=== PATIENT | male | born 1985 | race Caucasian/White ===

== ENCOUNTER 2018-02-09 13:26 | Emergency (ER) | payer SELFPAY ==
[~2018-02-09] VITALS: Ht 170.2 cm; Wt 77.0 kg
[2018-02-09] MEDS ORDERED: LORazepam 2 MG TAB PO ONE (14:30)
[2018-02-09 14:51] VITALS: BP 169/79; PULSE 86; RESP 20; TEMP 98.6; O2SAT 95
[2018-02-09 15:40] LABS: AUTOMATED NEUTROPHIL # 6.6 TH/MM3 (1.8-7.7); BASOPHIL # 0.1 TH/MM3 (0-0.2); BASOPHIL % 0.5 % (0.0-2.0); EOSINOPHIL % 0.3 % (0.0-4.0); HEMATOCRIT 39.7 % (39.0-51.0); HEMOGLOBIN 13.5 GM/DL (13.0-17.0); LYMPH % 19.3 % (9.0-44.0); LYMPHOCYTE # 1.8 TH/MM3 (1.0-4.8); MEAN CELL VOLUME 86.6 FL (80.0-100.0); MEAN CORPUSCULAR HEMOGLOBIN 29.4 PG (27.0-34.0); MEAN CORPUSCULAR HGB CONC 33.9 % (32.0-36.0); MEAN PLATELET VOLUME 8.2 FL (7.0-11.0); MONO % 9.9 % (0.0-8.0); MONOCYTE # 0.9 TH/MM3 (0-0.9); PLATELET COUNT 205 TH/MM3 (150-450); RED BLOOD COUNT 4.59 MIL/MM3 (4.50-5.90); RED CELL DISTRIBUTION WIDTH 13.7 % (11.6-17.2); WHITE BLOOD COUNT 9.4 TH/MM3 (4.0-11.0)
[2018-02-09 15:51] LABS: ALBUMIN 4.7 GM/DL (3.4-5.0); ALKALINE PHOSPHATASE 63 U/L (45-117); ALT (GPT) 53 U/L (12-78); AST (GOT) 120 U/L (15-37); BLOOD UREA NITROGEN 15 MG/DL (7-18); CALCIUM 9.5 MG/DL (8.5-10.1); CHLORIDE 105 MEQ/L (98-107); CREATININE 0.87 MG/DL (0.60-1.30); GLOMERULAR FILTRATION RATE 102 ML/MIN (>89); GLUCOSE,RANDOM 104 MG/DL (74-106); SODIUM (NA) 139 MEQ/L (136-145); TOTAL PROTEIN 8.7 GM/DL (6.4-8.2)
[2018-02-09 15:53] LABS: ACETAMINOPHEN LESS THAN 2.0 MCG/ML (10.0-30.0)
--- NOTE | 2018-02-09 17:53 | PD ---
HPI Chief Complaint: Psychiatric Symptoms Time Seen by Provider: 17:38 Travel History International Travel<30 days: No Contact w/Intl Traveler<30days: No Traveled to known affect area: No History of Present Illness HPI 32-year-old male presents to the emergency department under Logan act. According to the patient he got into an argument with his girlfriend after doing drugs. Patient denies suicidal or homicidal ideations. Denies history of suicidal attempt. Denies auditory or visual hallucinations. Reports alcohol use and doing cocaine and maybe some mildly. Is prescribed Adderall for ADHD. Symptoms are aggravated by doing drugs. No known relieving factors. Moderate to severe in severity. Unknown onset. Unknown duration. Patient denies chest pain, shortness breath, abdominal pain, nausea, vomiting, change in urine or stool. No known allergies. Denies significant past medical history. History of ADHD. Primary care provider is Dr. Gambino. Has no other medical complaints. No other modifying factors or associated signs and symptoms. 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 Reported Meds & Prescriptions Reported Meds & Active Scripts Active Review of Systems Except as stated in HPI: all other systems reviewed are Neg Physical Exam Narrative GENERAL: Well-nourished, well-developed male patient, in no acute distress SKIN: Warm and dry. HEAD: Atraumatic. Normocephalic. EYES: Pupils equal and round. ENT: Mucosa pink and moist. NECK: Supple. Trachea midline. CARDIOVASCULAR: Regular rate and rhythm. No murmur appreciated. RESPIRATORY: No accessory muscle use. Clear to auscultation. Breath sounds equal bilaterally. GASTROINTESTINAL: Abdomen soft, non-tender, nondistended. Hepatic and splenic margins not palpable. Bowel sounds are active 4 quadrants. MUSCULOSKELETAL: No obvious deformities. No clubbing. No cyanosis. No edema. BACK: No CVA tenderness. NEUROLOGICAL: Awake and alert. Oriented 3. No obvious cranial nerve deficits. Motor grossly within normal limits. Normal speech. Moves all extremities. 5/5 strength to all extremities. PSYCHIATRIC: No delusional thought processes. No hallucinations. Data Data Last Documented VS Vital Signs Date Time Temp Pulse Resp B/P (MAP) Pulse Ox O2 Delivery O2 Flow Rate FiO2 02/09/18 14:51 98.6 86 20 169/79 (109) 95 Room Air Orders Orders Complete Blood Count With Diff (02/09/18 14:21) Comprehensive Metabolic Panel (02/09/18 14:21) Thyroid Stimulating Hormone (02/09/18 14:21) Psych Screen (02/09/18 14:21) Drug Screen, Random Urine (02/09/18 14:21) Alcohol (Ethanol) (02/09/18 14:21) Salicylates (Aspirin) (02/09/18 14:21) Tylenol (Acetaminophen) (02/09/18 14:21) Lorazepam (Ativan) (02/09/18 14:30) Labs Laboratory Tests Test 02/09/18 14:30 02/09/18 15:25 White Blood Count 9.4 TH/MM3 Red Blood Count 4.59 MIL/MM3 Hemoglobin 13.5 GM/DL Hematocrit 39.7 % Mean Corpuscular Volume 86.6 FL Mean Corpuscular Hemoglobin 29.4 PG Mean Corpuscular Hemoglobin Concent 33.9 % Red Cell Distribution Width 13.7 % Platelet Count 205 TH/MM3 Mean Platelet Volume 8.2 FL Neutrophils (%) (Auto) 70.0 % Lymphocytes (%) (Auto) 19.3 % Monocytes (%) (Auto) 9.9 % Eosinophils (%) (Auto) 0.3 % Basophils (%) (Auto) 0.5 % Neutrophils # (Auto) 6.6 TH/MM3 Lymphocytes # (Auto) 1.8 TH/MM3 Monocytes # (Auto) 0.9 TH/MM3 Eosinophils # (Auto) 0.0 TH/MM3 Basophils # (Auto) 0.1 TH/MM3 CBC Comment DIFF FINAL Differential Comment Blood Urea Nitrogen 15 MG/DL Creatinine 0.87 MG/DL Random Glucose 104 MG/DL Total Protein 8.7 GM/DL Albumin 4.7 GM/DL Calcium Level 9.5 MG/DL Alkaline Phosphatase 63 U/L Aspartate Amino Transf (AST/SGOT) 120 U/L Alanine Aminotransferase (ALT/SGPT) 53 U/L Total Bilirubin 1.0 MG/DL Sodium Level 139 MEQ/L Potassium Level 3.6 MEQ/L Chloride Level 105 MEQ/L Carbon Dioxide Level 25.0 MEQ/L Anion Gap 9 MEQ/L Estimat Glomerular Filtration Rate 102 ML/MIN Thyroid Stimulating Hormone 3rd Gen 0.523 uIU/ML Salicylates Level LESS THAN 1.7 MG/DL Acetaminophen Level LESS THAN 2.0 MCG/ML Ethyl Alcohol Level LESS THAN 3 MG/DL Urine Opiates Screen NEG Urine Barbiturates Screen NEG Urine Amphetamines Screen POS Urine Benzodiazepines Screen NEG Urine Cocaine Screen NEG Urine Cannabinoids Screen POS MDM Medical Decision Making Medical Screen Exam Complete: Yes Emergency Medical Condition: Yes Medical Record Reviewed: Yes Differential Diagnosis Polysubstance abuse, suicidal threat, medical clearance for psychiatric admission Narrative Course Patient presents under a Logan act. Physical examination and vital signs are essentially unremarkable. Patient has no medical complaints to report. Psych screen has been ordered. If the laboratory results are unremarkable, the patient will be medically cleared for psychiatric evaluation and disposition. Diagnosis Primary Impression: Medical clearance for psychiatric admission Condition: Stable Maria Teresa Ahmadi Feb 09, 2018 17:53
[2018-02-09 18:26] VITALS: BP 145/92; PULSE 97; RESP 20; O2SAT 97
--- NOTE | 2018-02-09 20:13 | PD ---
History of Present Illness Chief Complaint: Psychiatric Symptoms Time Seen by Provider: 20:00 Travel History International Travel<30 Days: No Contact w/Intl Traveler<30days: No Known affected area: No Legal Status Legal Status: Logan Act Logan Act Signed By: Love Wyman Logan Act Comment: Oj Rojas [id number], Law Enf. Case #[id number] History of Present Illness: History of Present Illness HPI 32-year-old, male with reported history of ADHD who presents to the emergency department under a logan act initiated by law enforcement. The Logan act alleges that the patient is prescribed Adderall but his family feels that he has not been taking it as prescribed and has been injecting other illegal narcotics. Because of David's drug usage he has been acting irrationally, showing up to his parent's house unannounced and causing disturbances during the span of the 24 hour period. According to the patient he got into an argument with his girlfriend, went out to a bar with friends and admits to having done some cocaine. 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 Patient denies suicidal or homicidal ideations. Denies history of suicidal attempt. Denies auditory or visual hallucinations. Reports alcohol use and doing cocaine. Electronic medical record is reviewed. No previous contact with [facility] psychiatry. Toxicology is only positive for amphetamines. Blood alcohol level is less than 3. Patient was monitored in [facility] and he presented no behavioral concerns. Patient is seen. He is asleep but awakens easily. His speech is clear, logical , goal directed and of normal rate and tone. He is engaging and cooperative. His affect is appropriate and mood congruent. The patient does not appear to be experiencing any hallucinations, no delusions, no paranoia. He is not depressed or anxious. He denies any suicidal or homicidal ideation, intent or plan. The patient has not presented any aggressive behavior or agitation. He admits to having used cocaine once and denies any other drug usage and his toxicology is negative. He also states that he is taking his medication as prescribed. The patient is requesting to be discharged as his girlfriend is and is expecting to deliver anytime soon. Telephone call to his girlfriend, Juliana with his verbal authorization to obtain collateral. She has no concerns for his safety and states that he has been more stressed due her and her upcoming delivery. She will pick him up at the hospital if he is discharged. [facility] Past Medical History ADD: Yes Cancer: No Diabetes: No Diminished Hearing: No Hepatitis: Yes (Hep C) Hiatal Hernia: No Immunizations Current: Yes Thyroid Disease: No Tetanus Vaccination: < 5 Years Influenza Vaccination: No Past Surgical History Pacemaker: No Other Surgery: Yes (Left hand, middle finger) Psychiatric History Psychiatric History Hx Psychiatric Treatment: Has been diagnosed with ADHD. Currently under the care of Dr. Grier at [facility]. No history of inpatient psychiatric treatment. No history of suicide attempts. History of Inpatient Treatment: No Guns or firearms in home: No Social History Single male. Currently lives with his girlfriend and their young child. 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 Reported Meds & Prescriptions Reported Meds & Active Scripts Active Review of Systems Psychiatric: COMPLAINS OF: Anxiety (About being in the hospital) Except as stated in HPI: all other systems reviewed are Neg Mental Status Examination Appearance: Disheveled (Dressed in [facility]) Consciousness: Alert Orientation: x4 Motor Activity: Normal gait Speech: Unremarkable Language: Adequate Fund of Knowledge: Adequate Attention and Concentration: Adequate Memory: Unremarkable Mood: Appropriate Affect: Appropriate Thought Process & Associations: Intact, Logical, Goal directed Thought Content: Appropriate Hallucination Type: None Delusion Type: None Suicidal Ideation: No Suicidal Plan: No Suicidal Intention: No Homicidal Ideation: No Homicidal Plan: No Homicidal Intention: No Insight: Adequate Judgment: Adequate [facility] Medical Decision Making Medical Record Reviewed: Yes Assessment/Plan 32-year-old, male with reported history of ADHD who presents to the emergency department under a logan act initiated by law enforcement. The Logan act alleges that the patient is prescribed Adderall but his family feels that he has not been taking it as prescribed and has been injecting other illegal narcotics. Because of David's drug usage he has been acting irrationally, showing up to his parent's house unannounced and causing disturbances during the span of the 24 hour period. According to the patient he got into an argument with his girlfriend, went out to a bar with friends and admits to having done some cocaine. 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 The patient at this time does not present any evidence of unstable mental illness as defined under the Logan act. The patient has no suicidal or homicidal ideation, intent or plan. The patient is cognitively intact. The patient is future oriented. He does not meet Logan act criteria. Collateral information is obtained and his girlfriend has no concerns for his safety. BA is lifted. Psychiatric clear for discharge from the ED Orders Orders Complete Blood Count With Diff (02/09/18 14:21) Comprehensive Metabolic Panel (02/09/18 14:21) Thyroid Stimulating Hormone (02/09/18 14:21) Psych Screen (02/09/18 14:21) Drug Screen, Random Urine (02/09/18 14:21) Alcohol (Ethanol) (02/09/18 14:21) Salicylates (Aspirin) (02/09/18 14:21) Tylenol (Acetaminophen) (02/09/18 14:21) Lorazepam (Ativan) (02/09/18 14:30) Results Vital Signs Date Time Temp Pulse Resp B/P (MAP) Pulse Ox O2 Delivery O2 Flow Rate FiO2 02/09/18 18:26 97 20 145/92 (109) 97 02/09/18 14:51 98.6 86 20 169/79 (109) 95 Room Air Laboratory Tests Test 02/09/18 14:30 02/09/18 15:25 White Blood Count 9.4 Red Blood Count 4.59 Hemoglobin 13.5 Hematocrit 39.7 Mean Corpuscular Volume 86.6 Mean Corpuscular Hemoglobin 29.4 Mean Corpuscular Hemoglobin Concent 33.9 Red Cell Distribution Width 13.7 Platelet Count 205 Mean Platelet Volume 8.2 Neutrophils (%) (Auto) 70.0 Lymphocytes (%) (Auto) 19.3 Monocytes (%) (Auto) 9.9 Eosinophils (%) (Auto) 0.3 Basophils (%) (Auto) 0.5 Neutrophils # (Auto) 6.6 Lymphocytes # (Auto) 1.8 Monocytes # (Auto) 0.9 Eosinophils # (Auto) 0.0 Basophils # (Auto) 0.1 CBC Comment DIFF FINAL Differential Comment Blood Urea Nitrogen 15 Creatinine 0.87 Random Glucose 104 Total Protein 8.7 Albumin 4.7 Calcium Level 9.5 Alkaline Phosphatase 63 Aspartate Amino Transf (AST/SGOT) 120 Alanine Aminotransferase (ALT/SGPT) 53 Total Bilirubin 1.0 Sodium Level 139 Potassium Level 3.6 Chloride Level 105 Carbon Dioxide Level 25.0 Anion Gap 9 Estimat Glomerular Filtration Rate 102 Thyroid Stimulating Hormone 3rd Gen 0.523 Salicylates Level LESS THAN 1.7 Acetaminophen Level LESS THAN 2.0 Ethyl Alcohol Level LESS THAN 3 Urine Opiates Screen NEG Urine Barbiturates Screen NEG Urine Amphetamines Screen POS Urine Benzodiazepines Screen NEG Urine Cocaine Screen NEG Urine Cannabinoids Screen POS Diagnosis Primary Impression: Medical clearance for psychiatric admission Additional Impression: Substance induced mood disorder Psychiatrically Cleared: Yes Med/ Other Pt Specific Info: No Change to Meds, No Meds Exist/No RX given Disposition: 01 DISCHARGE HOME Condition: Stable Problem Qualifiers La Broussard Feb 09, 2018 20:13
--- NOTE | 2018-02-09 21:00 | PD ---
Physical Exam Time Seen by Provider: 20:59 Narrative Please refer to previous providers documentation for details regarding the patient's current visit. Data Data Last Documented VS Vital Signs Date Time Temp Pulse Resp B/P (MAP) Pulse Ox O2 Delivery O2 Flow Rate FiO2 02/09/18 18:26 97 20 145/92 (109) 97 02/09/18 14:51 98.6 Room Air Orders Orders Complete Blood Count With Diff (02/09/18 14:21) Comprehensive Metabolic Panel (02/09/18 14:21) Thyroid Stimulating Hormone (02/09/18 14:21) Psych Screen (02/09/18 14:21) Drug Screen, Random Urine (02/09/18 14:21) Alcohol (Ethanol) (02/09/18 14:21) Salicylates (Aspirin) (02/09/18 14:21) Tylenol (Acetaminophen) (02/09/18 14:21) Lorazepam (Ativan) (02/09/18 14:30) Ed Discharge Order (02/09/18 20:59) Labs Laboratory Tests Test 02/09/18 14:30 02/09/18 15:25 White Blood Count 9.4 TH/MM3 Red Blood Count 4.59 MIL/MM3 Hemoglobin 13.5 GM/DL Hematocrit 39.7 % Mean Corpuscular Volume 86.6 FL Mean Corpuscular Hemoglobin 29.4 PG Mean Corpuscular Hemoglobin Concent 33.9 % Red Cell Distribution Width 13.7 % Platelet Count 205 TH/MM3 Mean Platelet Volume 8.2 FL Neutrophils (%) (Auto) 70.0 % Lymphocytes (%) (Auto) 19.3 % Monocytes (%) (Auto) 9.9 % Eosinophils (%) (Auto) 0.3 % Basophils (%) (Auto) 0.5 % Neutrophils # (Auto) 6.6 TH/MM3 Lymphocytes # (Auto) 1.8 TH/MM3 Monocytes # (Auto) 0.9 TH/MM3 Eosinophils # (Auto) 0.0 TH/MM3 Basophils # (Auto) 0.1 TH/MM3 CBC Comment DIFF FINAL Differential Comment Blood Urea Nitrogen 15 MG/DL Creatinine 0.87 MG/DL Random Glucose 104 MG/DL Total Protein 8.7 GM/DL Albumin 4.7 GM/DL Calcium Level 9.5 MG/DL Alkaline Phosphatase 63 U/L Aspartate Amino Transf (AST/SGOT) 120 U/L Alanine Aminotransferase (ALT/SGPT) 53 U/L Total Bilirubin 1.0 MG/DL Sodium Level 139 MEQ/L Potassium Level 3.6 MEQ/L Chloride Level 105 MEQ/L Carbon Dioxide Level 25.0 MEQ/L Anion Gap 9 MEQ/L Estimat Glomerular Filtration Rate 102 ML/MIN Thyroid Stimulating Hormone 3rd Gen 0.523 uIU/ML Salicylates Level LESS THAN 1.7 MG/DL Acetaminophen Level LESS THAN 2.0 MCG/ML Ethyl Alcohol Level LESS THAN 3 MG/DL Urine Opiates Screen NEG Urine Barbiturates Screen NEG Urine Amphetamines Screen POS Urine Benzodiazepines Screen NEG Urine Cocaine Screen NEG Urine Cannabinoids Screen POS MDM Medical Record Reviewed: Yes Supervised Visit with ELEN: No Narrative Course Patient has been medically cleared, seen and evaluated by psychiatry. Logan act has been lifted. Patient will be discharged home at this time. Diagnosis Primary Impression: Medical clearance for psychiatric admission Additional Impression: Substance induced mood disorder Patient Instructions: General Instructions Departure Forms: Tests/Procedures Disposition: DISCHARGE HOME Condition: Stable Keri Demarco Feb 09, 2018 21:00
== END 2018-02-09 21:08 | disposition home or self-care (01) ==
LOC: NEPJ 13:26
DX: F19.94 Other psychoactive substance use, unspecified with psychoactive substance-induced mood disorder (principal); F90.9 Attention-deficit hyperactivity disorder, unspecified type; F41.9 Anxiety disorder, unspecified; B19.20 Unspecified viral hepatitis C without hepatic coma; Z72.0 Tobacco use
CPT/HCPCS: 80053; 80307; 84443; 85025; 99283

== ENCOUNTER 2018-09-18 18:38 | Inpatient (IN) ==
[2018-09-18] MEDS ORDERED: Sod Chloride 0.9% Inj 1,000 ML IV.SIG SCH ×2 (19:00)
[2018-09-18 19:23] LABS: Baso % (Auto) 0.1 % (0.0-2.0); Hematocrit 38.2 % (39.0-51.0); Hemoglobin 12.8 gm/dL (13.0-17.0); Lymph # (Auto) 0.7 th/mm3 (1.0-4.8); Lymph % (Auto) 8.1 % (9.0-44.0); Mean Corpuscular HGB Conc 33.5 % (32.0-36.0); Mean Corpuscular Hemoglobin 29.1 pg (27.0-34.0); Mean Platelet Volume 7.8 fL (7.0-11.0); Mono # (Auto) 0.4 th/mm3 (0.0-0.9); Mono % (Auto) 4.2 % (0.0-8.0); Neut # (Auto) 7.7 th/mm3 (1.8-7.7); Neut % (Auto) 87.6 % (16.0-70.0); Platelet Count 216 th/mm3 (150-450); Red Blood Count 4.39 mil/mm3 (4.50-5.90); Red Cell Distribution Width 13.7 % (11.6-17.2); White Blood Count 8.8 th/mm3 (4.0-11.0)
--- NOTE | 2018-09-18 19:32 | CT ---
EXAM DATE: 09/18/2018 7:21 PM EST AGE/SEX: 32 years / Male INDICATIONS: Altered mental status; probable substance abuse. Patient is in police custody and has contusions post resisting arrest. CLINICAL DATA: This is the patient's initial encounter. Patient reports that signs and symptoms have been present for 1 day and indicates a pain score of Nonresponsive. MEDICAL/SURGICAL HISTORY: None. None. RADIATION DOSE: 36.72 CTDI (mGy) COMPARISON: No prior exams available for comparison. TECHNIQUE: CT of the head without contrast. Using automated exposure control and adjustment of the mA and/or kV according to patient size, radiation dose was kept as low as reasonably achievable to ob tain optimal diagnostic quality images. DICOM format image data is available electronically for revi ew and comparison. FINDINGS: Cerebrum: Abnormal. Evidence of pneumocephalus with gas adjacent to the inner table of the left midd le cranial fossa adjacent to a nondisplaced temporal bone fracture. The ventricles are normal for age . No evidence of midline shift, mass lesion, hemorrhage or acute infarction. No extraaxial fluid co llections are seen. Posterior Fossa: The cerebellum and brainstem are intact. The 4th ventricle is midline. The cerebe llopontine angle is unremarkable. Extracranial: The visualized portion of the orbits is intact. Skull: There is a nondisplaced fracture of the lateral left temporal bone about the posterior aspect of the middle cranial fossa with extension of the fracture into the posterior inferior middle crania l fossa. CONCLUSION: 1. Left skull fracture in the middle cranial fossa temporal bone with adjacent pneumocephalus. No ev idence of intraparenchymal hemorrhage at this point. Recommend close follow-up. . Electronically signed by: Audi Hammonds MD 09/18/2018 7:31 PM EST
[2018-09-18 19:43] LABS: Alanine Aminotransferase 39 U/L (12-78); Albumin 3.9 g/dL (3.4-5.0); Anion Gap 13 meq/L (5-15); Aspartate Aminotransferase 36 U/L (15-37); Blood Urea Nitrogen 15 mg/dL (7-18); Carbon Dioxide 19.8 meq/L (21.0-32.0); Chloride 106 meq/L (98-107); Glomerular Filtration Rate 63 mL/min (>89); Glucose,Random 148 mg/dL (74-106); Magnesium 2.3 mg/dL (1.5-2.5); Potassium 3.8 meq/L (3.5-5.1); Sodium 139 meq/L (136-145)
[2018-09-18 19:46] LABS: Alkaline Phosphatase 68 U/L (45-117); Creatine Kinase 647 U/L (39-308); Total Protein 7.5 g/dL (6.4-8.2)
[2018-09-18 19:59] LABS: CKMB Percent 1.1 % (0.0-4.0); Creatine Kinase MB 7.2 ng/mL (0.5-3.6)
--- NOTE | 2018-09-18 20:04 | ED ---
HPI General Chief complaint: Overdose Stated complaint: Poss Overdose/OBPD Time Seen by Provider: 09/18/18 18:51 Source: patient, EMS and police Mode of arrival: EMS Limitations: no limitations History of Present Illness HPI narrative: Patient is a 32-year-old male presenting to emerge department for medical clearance. Patient was found running around his neighborhood naked trying to get into people's vehicles. Patient reports that he took 60 mg of Adderall today. Please states that they had to use a taser to restrain patient. Patient states that he has pain all over, constant, aching pain, 5 out of 10. He denies intentionally trying to overdose. He states that he was unable to sleep for several days. He currently denies any chest pain, shortness of breath, headache, dizziness, he denies any illicit drug use. He does admit to a history of methamphetamine use. Associated symptoms: Reports denies other symptoms Related Data Home Medications Medication Instructions Recorded Confirmed dextroamphetamine-amphetamine 30 mg PO BID 09/18/18 09/18/18 [Adderall] Allergies Allergy/AdvReac Type Severity Reaction Status Date / Time No Known Allergies Allergy Verified 09/18/18 18:46 Review of Systems ROS: all other systems reviewed are negative PMFSH Medical History Medical History ADHD (Acute) Surgical History Surgical History No history of previous surgery (Acute) Social History Social History Substance History: Active Abuse Second Hand Smoke Exposure: No Smoking Status: Never smoker How Often Do You Have a Drink Containing Alcohol: 2 to 4 times a month Recent Travel in [facility] within the Last 8 Weeks: No Recent Out of Country Travel within the Last 8 Weeks: No Substance Abuse Detail Marijuana: Substance Use Status: Active Route Used Substance Abuse: Inhalation Reason for Use: Calm Down Immunization History Tetanus Immunization: >5 Years Exam Narrative Exam Narrative: GENERAL: Well-developed, well-nourished, alert male. Presenting in no acute distress. SKIN: Focused skin assessment warm/dry. Puncture guthrie to the left anterior shoulder and left lower abdomen. Abrasion to forehead and nose, ecchymosis to right cheek. HEAD: Atraumatic. Normocephalic. EYES: Pupils equal and round. Extraocular movements are intact. No scleral icterus. No injection or drainage. ENT: No nasal bleeding or discharge. Mucous membranes pink and moist. NECK: Trachea midline. No JVD. CARDIOVASCULAR: Regular rate and rhythm. No murmur appreciated. RESPIRATORY: No accessory muscle use. Clear to auscultation. Breath sounds equal bilaterally. GASTROINTESTINAL: Abdomen soft, non-tender, nondistended. Hepatic and splenic margins not palpable. MUSCULOSKELETAL: No obvious deformities. No clubbing. No cyanosis. No edema. NEUROLOGICAL: Awake and alert. No obvious cranial nerve deficits. Motor grossly within normal limits. Normal speech. PSYCHIATRIC: Appropriate mood and affect; insight and judgment normal. Course Initial Documented Vital Signs Temperature 98.7 F 09/18/18 18:43 Pulse Rate 80 09/18/18 18:43 Respiratory Rate 18 09/18/18 18:43 Blood Pressure 122/80 09/18/18 18:43 Pulse Oximetry 98 09/18/18 18:43 Last Documented Vital Signs Temperature 98.7 F 09/18/18 18:43 Pulse Rate 86 09/18/18 21:00 Respiratory Rate 17 09/18/18 21:00 Blood Pressure 137/67 09/18/18 21:00 Pulse Oximetry 99 09/18/18 21:00 NIH Stroke Scale NIH Stroke Scale Level of Consciousness: 0-Alert Orientation Questions: 0-Answers both correct Responds to Commands: 0-Both tasks correct Gaze Eye Movement: 0-Horizontal movement WNL Visual [place]: 0-No visual field defect Facial Movement: 0-Normal Motor Functions Arm LEFT: 0-No drift Motor Functions Arm RIGHT: 0-No drift Motor Functions Leg LEFT: 0-No drift Motor Functions Leg RIGHT: 0-No drift Limb Ataxia: 0-No ataxia Sensory Loss: 0-No sensory loss Best Language: 0-Normal Articulation: 0-Normal Total: 0 Medical Decision Making ELEN Attestation ELEN supervised visit: Yes Attestation: I, Dr. Yanez, have reviewed the advance practice practitioner's documentation and am in agreement, met with the patient face to face, made the diagnosis, and the medical decision making was done by me. *My assessment and Findings: Case is seen and evaluated with nurse practitioner , please see nurse practitioner's note for further details. Here in custody, apparently had taken a high dose of his Adderall, is disoriented, CAT scan however showing skull fracture. At this point, case has been discussed with Dr. Mahajan and he states the patient should be admitted to trauma service. Case was then discussed with Dr. Burt for admission. [facility] Narrative Medical decision making narrative: Patient is a 32-year-old male currently in custody of law enforcement for medical clearance for usp. No focal deficits on exam. Patient's vital signs are stable, labs and imaging ordered and pending. Poison control was notified by RN. Please see her notes. Patient will be given 2 L of IV fluids. Labs reviewed, CK is mildly elevated at 647. Urine drug screen is positive for benzodiazepines, beans and cannabinoids. CT scan of the brain shows a temporal bone fracture pneumocephalus. This was initially discussed with Dr. Mahajan, neurosurgery. He recommended that a CAT scan be performed in the morning, neurochecks and admit to the trauma surgeon. These orders were placed in a consult was placed to neurosurgery. Discussed with Dr. Burt who accepted admission. Admit orders placed. Medical Screen Exam Complete: Yes Emergency Medical Condition: Yes Lab Data Lab results reviewed: Yes I reviewed the patient's lab results. Result diagrams: 09/18/18 18:00 09/18/18 18:00 Lab Results 09/18/18 09/18/18 09/18/18 Range/Units 18:00 18:00 18:00 WBC 8.8 (4.0-11.0) th/mm3 RBC 4.39 L (4.50-5.90) mil/mm3 Hgb 12.8 L (13.0-17.0) gm/dL Hct 38.2 L (39.0-51.0) % MCV 87.0 (80.0-100.0) fL MCH 29.1 (27.0-34.0) pg MCHC 33.5 (32.0-36.0) % RDW 13.7 (11.6-17.2) % Plt Count 216 (150-450) th/mm3 MPV 7.8 (7.0-11.0) fL Neut % (Auto) 87.6 H (16.0-70.0) % Lymph % (Auto) 8.1 L (9.0-44.0) % [place] % (Auto) 4.2 (0.0-8.0) % Eos % (Auto) 0.0 (0.0-4.0) % Baso % (Auto) 0.1 (0.0-2.0) % Neut # (Auto) 7.7 (1.8-7.7) th/mm3 Lymph # (Auto) 0.7 L (1.0-4.8) th/mm3 [place] # (Auto) 0.4 (0.0-0.9) th/mm3 Eos # (Auto) 0.0 (0.0-0.4) th/mm3 Baso # (Auto) 0.0 (0.0-0.2) th/mm3 WBC Differential . Differential Comment Auto diff final PT (9.8-11.6) sec INR Ratio APTT (23.4-31.7) sec Sodium 139 (136-145) meq/L Potassium 3.8 (3.5-5.1) meq/L Chloride 106 (98-107) meq/L Carbon Dioxide 19.8 L (21.0-32.0) meq/L Anion Gap 13 (5-15) meq/L BUN 15 (7-18) mg/dL Creatinine 1.31 H (0.60-1.30) mg/dL Estimated GFR 63 L (>89) mL/min Random Glucose 148 H (74-106) mg/dL Calcium 9.0 (8.5-10.1) mg/dL Magnesium 2.3 (1.5-2.5) mg/dL Total Bilirubin 0.6 (0.2-1.0) mg/dL AST 36 (15-37) U/L ALT 39 (12-78) U/L Alkaline Phosphatase 68 (45-117) U/L Total Creatine Kinase 647 H Cancelled (39-308) U/L CK-MB (CK-2) 7.2 H (0.5-3.6) ng/mL CK-MB (CK-2) % 1.1 (0.0-4.0) % Troponin I Less than 0.02 L (0.02-0.05) ng/mL Total Protein 7.5 (6.4-8.2) g/dL Albumin 3.9 (3.4-5.0) g/dL Salicylates (2.8-20.0) mg/dL Urine Opiates Screen (Neg) Acetaminophen Less than 2.0 L (10.0-30.0) mcg/mL Ur Barbiturates Screen (Neg) Ur Amphetamines Screen (Neg) U Benzodiazepines Scrn (Neg) Urine Cocaine Screen (Neg) U Cannabinoids Screen (Neg) Serum Alcohol Less than 3 (0-5) mg/dL 09/18/18 09/18/18 09/18/18 Range/Units 18:00 18:00 18:50 WBC (4.0-11.0) th/mm3 RBC (4.50-5.90) mil/mm3 Hgb (13.0-17.0) gm/dL Hct (39.0-51.0) % MCV (80.0-100.0) fL MCH (27.0-34.0) pg MCHC (32.0-36.0) % RDW (11.6-17.2) % Plt Count (150-450) th/mm3 MPV (7.0-11.0) fL Neut % (Auto) (16.0-70.0) % Lymph % (Auto) (9.0-44.0) % [place] % (Auto) (0.0-8.0) % Eos % (Auto) (0.0-4.0) % Baso % (Auto) (0.0-2.0) % Neut # (Auto) (1.8-7.7) th/mm3 Lymph # (Auto) (1.0-4.8) th/mm3 [place] # (Auto) (0.0-0.9) th/mm3 Eos # (Auto) (0.0-0.4) th/mm3 Baso # (Auto) (0.0-0.2) th/mm3 WBC Differential Differential Comment PT 11.1 (9.8-11.6) sec INR 1.1 Ratio APTT 22.2 L (23.4-31.7) sec Sodium (136-145) meq/L Potassium (3.5-5.1) meq/L Chloride (98-107) meq/L Carbon Dioxide (21.0-32.0) meq/L Anion Gap (5-15) meq/L BUN (7-18) mg/dL Creatinine (0.60-1.30) mg/dL Estimated GFR (>89) mL/min Random Glucose (74-106) mg/dL Calcium (8.5-10.1) mg/dL Magnesium (1.5-2.5) mg/dL Total Bilirubin (0.2-1.0) mg/dL AST (15-37) U/L ALT (12-78) U/L Alkaline Phosphatase (45-117) U/L Total Creatine Kinase (39-308) U/L CK-MB (CK-2) (0.5-3.6) ng/mL CK-MB (CK-2) % (0.0-4.0) % Troponin I (0.02-0.05) ng/mL Total Protein (6.4-8.2) g/dL Albumin (3.4-5.0) g/dL Salicylates Less than 1.7 L (2.8-20.0) mg/dL Urine Opiates Screen (Neg) Acetaminophen Cancelled (10.0-30.0) mcg/mL Ur Barbiturates Screen (Neg) Ur Amphetamines Screen (Neg) U Benzodiazepines Scrn (Neg) Urine Cocaine Screen (Neg) U Cannabinoids Screen (Neg) Serum Alcohol Cancelled (0-5) mg/dL 09/18/18 Range/Units 20:30 WBC (4.0-11.0) th/mm3 RBC (4.50-5.90) mil/mm3 Hgb (13.0-17.0) gm/dL Hct (39.0-51.0) % MCV (80.0-100.0) fL MCH (27.0-34.0) pg MCHC (32.0-36.0) % RDW (11.6-17.2) % Plt Count (150-450) th/mm3 MPV (7.0-11.0) fL Neut % (Auto) (16.0-70.0) % Lymph % (Auto) (9.0-44.0) % [place] % (Auto) (0.0-8.0) % Eos % (Auto) (0.0-4.0) % Baso % (Auto) (0.0-2.0) % Neut # (Auto) (1.8-7.7) th/mm3 Lymph # (Auto) (1.0-4.8) th/mm3 [place] # (Auto) (0.0-0.9) th/mm3 Eos # (Auto) (0.0-0.4) th/mm3 Baso # (Auto) (0.0-0.2) th/mm3 WBC Differential Differential Comment PT (9.8-11.6) sec INR Ratio APTT (23.4-31.7) sec Sodium (136-145) meq/L Potassium (3.5-5.1) meq/L Chloride (98-107) meq/L Carbon Dioxide (21.0-32.0) meq/L Anion Gap (5-15) meq/L BUN (7-18) mg/dL Creatinine (0.60-1.30) mg/dL Estimated GFR (>89) mL/min Random Glucose (74-106) mg/dL Calcium (8.5-10.1) mg/dL Magnesium (1.5-2.5) mg/dL Total Bilirubin (0.2-1.0) mg/dL AST (15-37) U/L ALT (12-78) U/L Alkaline Phosphatase (45-117) U/L Total Creatine Kinase (39-308) U/L CK-MB (CK-2) (0.5-3.6) ng/mL CK-MB (CK-2) % (0.0-4.0) % Troponin I (0.02-0.05) ng/mL Total Protein (6.4-8.2) g/dL Albumin (3.4-5.0) g/dL Salicylates (2.8-20.0) mg/dL Urine Opiates Screen Neg (Neg) Acetaminophen (10.0-30.0) mcg/mL Ur Barbiturates Screen Neg (Neg) Ur Amphetamines Screen Pos H (Neg) U Benzodiazepines Scrn Pos H (Neg) Urine Cocaine Screen Neg (Neg) U Cannabinoids Screen Pos H (Neg) Serum Alcohol (0-5) mg/dL Imaging Data Radiologist's impression: Head CT 09/18/18 18:52 CONCLUSION: 1. Left skull fracture in the middle cranial fossa temporal bone with adjacent pneumocephalus. No evidence of intraparenchymal hemorrhage at this point. Recommend close follow-up. . Discharge Plan Discharge Disposition Patient Disposition: 30 Still Patient Discharge Condition Condition: Stable Discharge Details Diagnosis: Closed fracture of temporal bone, Drug overdose, Rhabdomyolysis Physicians Team ED Provider: Eliu Yanez ED Midlevel Provider: Shawna Hernandez Primary Care Provider: UNKNOWN, Rxs /Orders / Referrals /Forms Prescriptions: No Action dextroamphetamine-amphetamine [Adderall] 30 mg Tablet 30 mg PO BID RF: 0 Status ED Status: Admitted Patient
--- NOTE | 2018-09-18 20:37 | P.CONNS ---
History of Present Illness Service: Neurosurgery Consult date: 09/18/18 Reason for Consult: skull fracure Primary Care Provider: UNKNOWN Chief Complaint: Fall, head injury History of Present Illness: This is a 32-year-old male who was found running around his neighborhood naked trying to get into people's vehicles. He reports that he took 60 mg of Adderall today. When attempting to arrest him the police states that they had to use a teaser to restrain patient. No seizure activity. No tongue bitting. No incontinence of stool or urine. Patient states that he has pain all over, constant, aching pain, 5 out of 10. He denies intentionally trying to overdose. He states that he was unable to sleep for several days. He currently denies any chest pain, shortness of breath , headache, dizziness, he denies any illicit drug use. He does admit to a history of methamphetamine use. He denies focal weakness. Denies sensory loss, denies incontinence of stool or urine, CT brain showed a temporal fracture and a small pneumocephalus. Neurosurgical consultation was requested His family history was reviewed and noncontributory to this admission Review of Systems All other systems reviewed negative except as stated in HPI PMFSH - History History Provided By: Patient - Medical History Medical History: Medical History (Last Reviewed 09/18/18 @ 20:44 by Davide Mahajan MD) ADHD - Surgical History Surgical History: Surgical History (Last Reviewed 09/18/18 @ 20:44 by Davide Mahajan MD) No history of previous surgery - Tobacco History Second Hand Smoke Exposure: No Smoking Status: Never smoker - Alcohol History How Often Do You Have a Drink Containing Alcohol: 2 to 4 times a month - Substance Use History Substance History: Active Abuse - Substance Use Type Marijuana Status: Active Route Used: Inhalation Reason for Use: Calm Down Opiates Status: Active Route Used: By Mouth Frequency: DAILY X 2YEARS Last Used: 48HOURS Reason for Use: Calm Down Comment: PATIENT GOT ON METHADONE TO GET OFF OF OTHER OPIATES, STATES HE HASN'T - Travel History Recent Travel in the [facility] Within the Last 8 Weeks: No Recent Travel Out of the Country Within the Last 8 Weeks: No - Immunization History Tetanus Immunization: >5 Years Medications and Allergies Active Medications: Active Medications Sodium Chloride (Ns Flush) 2 ml IV.FLUSH PRN PRN PRN Reason: FLUSH AFTER USING IV ACCESS Allergies Allergy/AdvReac Type Severity Reaction Status Date / Time No Known Allergies Allergy Verified 09/18/18 18:46 Home Medications Medication Instructions Recorded Confirmed Type methadone 160 mg PO DAILY 09/19/18 09/19/18 History Exam Vital signs: Vital Signs 09/18/18 18:43 09/18/18 18:51 09/18/18 18:56 Temperature 98.7 F Pulse Rate 80 89 87 Respiratory Rate 18 20 Blood Pressure 122/80 135/69 Pulse Oximetry 98 96 Intake & Output 09/18/18 09/18/18 09/19/18 06:59 18:59 06:59 Intake Total 1999 Balance 1999 Weight 81.647 kg Intake: IV 1999 NS Inj 1,000 ML @ 1000 mls/hr 1999 IV.SIG BOLUS CONSUELO Rx#:[id number] Narrative: The patient is alert, awake. Speech is fluent. GCS 15 Cranial nerve examination: pupils to be equal, round and reactive to light. Extra-ocular movements are intact. Facial motor and sensory function are normal and symmetrical. Gross hearing appears decreased on the left Sternocleidomastoid and trapezius muscles are symmetrical. Other cranial nerves are intact. Neck is soft and supple with a good range of motion without pain. Muscle strength is normal in all muscle groups of both upper and lower extremities. Sensory examination is intact to light touch and pin prick in both the upper and lower extremities. Deep tendon reflexes are symmetrical in both upper and lower extremities. There is a bilateral plantar flexion response. Cerebellar examination is unremarkable, without deficits. Lungs are clear Heart regular rhythm is regular rate Skin warm and dry Results - Laboratory Findings CBC and BMP: 09/19/18 05:41 09/19/18 05:41 Abnormal lab findings: Abnormal Labs 09/18/18 09/18/18 09/18/18 18:00 18:00 18:00 RBC 4.39 L Hgb 12.8 L Hct 38.2 L Neut % (Auto) 87.6 H Lymph % (Auto) 8.1 L Lymph # (Auto) 0.7 L Carbon Dioxide 19.8 L Creatinine 1.31 H Estimated GFR 63 L Random Glucose 148 H Total Creatine Kinase 647 H CK-MB (CK-2) 7.2 H Troponin I Less than 0.02 L Salicylates Less than 1.7 L Acetaminophen Less than 2.0 L Assessment and Plan - Plan I have reviewed the clinical and radiological findings Head CT 09/18/18 18:52 CONCLUSION: 1. Left skull fracture in the middle cranial fossa temporal bone with adjacent pneumocephalus. No evidence of intraparenchymal hemorrhage at this point. Recommend close follow-up. . Neuro: neuro checks in a serial fashion. HOB elevation. Watch for CSF leak Pulmonary: aggressive pulmonary toilette, nasotracheal suction, and breathing treatments with nebulizers. Daily PT and OT Renal: Continue to monitor closely urine output, BUN and creatinine Endocrine: Continue to Monitor serial Acu checks and SSI as needed in detail ID continue to monitor for signs of infection Continue Protonix for stress ulcer prophylaxis Continue Gutierrez hose and SCD's for DVT prophylaxis Further recommendations will be provided depending on the patient's clinical evaluation and follow up studies.
[2018-09-18 20:38] LABS: Activated Partial Thrombo Time 22.2 sec (23.4-31.7); INR 1.1 Ratio; Prothrombin Time 11.1 sec (9.8-11.6)
[2018-09-18 20:50] LABS: Amphetamine Screen,Urine Pos (Neg); Barbiturate Screen,Urine Neg (Neg); Cannabinoid Screen,Urine Pos (Neg); Cocaine Screen,Urine Neg (Neg)
[2018-09-18 20:58] LABS: Opiate Screen,Urine Neg (Neg)
[2018-09-18] MEDS ORDERED: Pantoprazole Inj 40 MG Vial IV.PUSH SCH (22:00)
[2018-09-19] MEDS: Sod Chloride 0.9% Inj 1,000 ML IV.CONT SCH ×2 (01:09→08:56)
[2018-09-19 06:08] LABS: Baso % (Auto) 0.1 % (0.0-2.0); Eos % (Auto) 0.1 % (0.0-4.0); Hematocrit 35.7 % (39.0-51.0); Lymph # (Auto) 1.3 th/mm3 (1.0-4.8); Lymph % (Auto) 11.3 % (9.0-44.0); Mean Corpuscular HGB Conc 33.7 % (32.0-36.0); Mean Corpuscular Hemoglobin 29.8 pg (27.0-34.0); Mean Corpuscular Volume 88.3 fL (80.0-100.0); Mean Platelet Volume 7.9 fL (7.0-11.0); Mono # (Auto) 0.8 th/mm3 (0.0-0.9); Neut # (Auto) 9.2 th/mm3 (1.8-7.7); Neut % (Auto) 81.5 % (16.0-70.0); Platelet Count 164 th/mm3 (150-450); Red Blood Count 4.04 mil/mm3 (4.50-5.90); Red Cell Distribution Width 13.8 % (11.6-17.2); White Blood Count 11.3 th/mm3 (4.0-11.0)
[2018-09-19 06:57] LABS: Alanine Aminotransferase 51 U/L (12-78); Albumin 3.6 g/dL (3.4-5.0); Alkaline Phosphatase 59 U/L (45-117); Anion Gap 10 meq/L (5-15); Aspartate Aminotransferase 156 U/L (15-37); Blood Urea Nitrogen 11 mg/dL (7-18); Calcium 8.5 mg/dL (8.5-10.1); Carbon Dioxide 23.1 meq/L (21.0-32.0); Chloride 108 meq/L (98-107); Glomerular Filtration Rate Greater Than 89 mL/min (>89); Glucose,Random 82 mg/dL (74-106); Potassium 3.8 meq/L (3.5-5.1); Sodium 141 meq/L (136-145); Total Protein 6.9 g/dL (6.4-8.2)
--- NOTE | 2018-09-19 07:04 | MH ---
cc: Darrian Sparrow MD DATE OF ADMISSION: 09/18/2018 HISTORY OF PRESENT ILLNESS: This is a 32-year-old male by reports was running around clothesless after taking Adderall. The patient was tased by a police sergeant precinct and fell forward. He was brought in as a nontrauma, was evaluated by the emergency room physician, found to have a skull fracture with pneumocephalus. Trauma service was requested for admission. On my evaluation, the patient is lying in bed in no acute distress. He complains of facial pain and what he states is pain all over. No numbness or tingling. No visual changes. No chest pains or shortness of breath. PAST MEDICAL HISTORY: Significant for ADHD. Patient does have a script for Adderall. ALLERGIES: HE HAS NO KNOWN DRUG ALLERGIES. PAST SURGICAL HISTORY: No surgeries in the past. SOCIAL HISTORY: He does have a drug abuse history and is currently on methadone. PHYSICAL EXAMINATION: HEENT: Reveals ecchymosis on his facial bones. His pupils are equal and reactive. His trachea is midline. NECK: Nontender. LUNGS: Clear. HEART: Regular. GASTROINTESTINAL: Soft, nontender. MUSCULOSKELETAL: No deformities. SKIN: The patient has abrasions on his left flank, left thigh. BACK: Nontender. No step-offs. NEUROLOGIC: Nonfocal. LABORATORY DATA: The patient's hemoglobin is 12, hematocrit is 35. RADIOLOGIC IMAGES: CT of the head reveals temporal bone fracture with pneumocephalus. ASSESSMENT AND PLAN: This is a patient who has a skull fracture. The patient was evaluated by Neurosurgery. He is being admitted for observation. We will obtain a CT of the and facial bones, provide pain management, monitor neurological status. MD NAIMA Acuna/purnima , 06:45 AM , 06:50 AM
[2018-09-19] MEDS ORDERED: Influenza (Quadrivalent) Vaccine 0.5 ML Syringe IM ONE (08:30)
[2018-09-19] MEDS ORDERED: Senna/Docusate Sodium 8.6/50 MG Tablet PO SCH (09:00)
[2018-09-19 09:03] VITALS: RESP 20
--- NOTE | 2018-09-19 09:24 | CT ---
EXAM DATE: 09/19/2018 9:16 AM EST AGE/SEX: 32 years / Male INDICATIONS: Follow up head trauma CLINICAL DATA: This is the patient's subsequent encounter. Patient reports that signs and symptoms h ave been present for 1 day and indicates a pain score of 6/10. MEDICAL/SURGICAL HISTORY: None. None. RADIATION DOSE: 34.18 CTDI (mGy) [place] [facility] [place]. . TECHNIQUE: CT of the head without contrast. Using automated exposure control and adjustment of the mA and/or kV according to patient size, radiation dose was kept as low as reasonably achievable to ob tain optimal diagnostic quality images. DICOM format image data is available electronically for revi ew and comparison. FINDINGS: Noncontrast CT imaging through the brain parenchyma demonstrates a small area of pneumocephaly along the lateral margin of the left temporal lobe. In addition, the exam demonstrates a punctate area of p arenchymal hemorrhage in the lateral margin of the right temporal lobe. This measures only approximat kamila 2 mm. The ventricular system is normal in size and configuration. No mass lesion is identified. The appeara nce of the posterior fossa is unremarkable. The sulci and gyri are otherwise intact. Bone windowed imaging is provided. These demonstrate a small nondisplaced fracture in the lateral asp ect of the left temporal bone adjacent to the small area of pneumocephaly. CONCLUSION: 1. 2 mm area of hemorrhage in the lateral margin of the right temporal lobe this is similar in appea kenya to previous exam of 09/18/2018. 2. Nondisplaced fracture of the lateral margin of the left temporal bone with associated pneumocepha ly. No hemorrhage identified within the left temporal lobe. . Electronically signed by: Buster Barajas MD 09/19/2018 9:22 AM EST
--- NOTE | 2018-09-19 10:19 | CT ---
EXAM DATE: 09/19/2018 9:05 AM EST AGE/SEX: 32 years / Male INDICATIONS: Follow up head injury CLINICAL DATA: This is the patient's initial encounter. Patient reports that signs and symptoms have been present for 1 day and indicates a pain score of 6/10. MEDICAL/SURGICAL HISTORY: None. None. RADIATION DOSE: 57.18 CTDI (mGy) COMPARISON: No prior exams available for comparison. TECHNIQUE: Contiguous images in the axial and coronal planes were obtained using helical multirow de tector technique. Using automated exposure control and adjustment of the mA and/or kV according to p atient size, radiation dose was kept as low as reasonably achievable to obtain optimal diagnostic mukesh lity images. DICOM format image data is available electronically for review and comparison. FINDINGS: Orbits: The orbital and infraorbital osseous structures are intact. The retroconal structures have a normal configuration. No radiopaque foreign bodies are seen. Nasal Bone: The examination demonstrates a nondisplaced fracture through the nasal bone. Zygomatic Arches: Symmetric without evidence of fracture. Sinuses: The maxillary, ethmoid, and frontal sinuses are intact. No air-fluid levels seen. Nasal Cavity: The nasal septum is intact and midline. The lacrimal ducts are intact. Soft Tissues: No radiopaque foreign bodies seen. No soft-tissue swelling is seen. Intracranial: No intracranial air seen. Cribriform Plate: Grossly intact. CONCLUSION: 1. There is a small fracture through the inferior aspect of the temporal bone into the middle crania l fossa. This is nondisplaced. 2. There is nondisplaced fracture through the nasal bone. It is possible this is old. 3. The remainder the osseous structures of the face are intact. Electronically signed by: Buster Barajas MD 09/19/2018 10:18 AM EST
--- NOTE | 2018-09-19 10:57 | P.PN ---
Physical Exam Vital signs: Vital Signs 09/18/18 18:43 09/18/18 18:51 09/18/18 18:56 Temperature 98.7 F Pulse Rate 80 89 87 Respiratory Rate 18 20 Blood Pressure 122/80 135/69 Pulse Oximetry 98 96 09/18/18 21:00 09/19/18 00:38 09/19/18 01:45 Temperature 97.8 F Pulse Rate 86 86 81 Respiratory Rate 17 17 18 Blood Pressure 137/67 155/96 H 130/76 Pulse Oximetry 99 100 100 09/19/18 04:00 09/19/18 07:48 09/19/18 08:00 Temperature 98.9 F 97.4 F L Pulse Rate 73 69 Respiratory Rate 18 18 20 Blood Pressure 128/63 135/76 Pulse Oximetry 99 100 09/19/18 09:43 Temperature Pulse Rate Respiratory Rate Blood Pressure Pulse Oximetry 100 Intake & Output 09/18/18 09/19/18 09/19/18 18:59 06:59 18:59 Intake Total 1999 1000 / 1000 Balance 1999 1000 / 1000 Weight 81.647 kg 80.1 kg Intake: IV 1999 1000 / 1000 NS Inj 1,000 ML @ 100 mls/hr IV 1000 / 1000 .CONT .Q10H CONSU[facility]O Rx#:[id number] NS Inj 1,000 ML @ 1000 mls/hr 1999 IV.SIG BOLUS CONSUELO Rx#:[id number] Other: # Voids 0 Results - Labs CBC & Chem 7: 09/19/18 05:41 09/19/18 05:41 Laboratory Results - last 24 hr 09/18/18 09/18/18 09/18/18 18:00 18:00 18:00 WBC 8.8 RBC 4.39 L Hgb 12.8 L Hct 38.2 L MCV 87.0 MCH 29.1 MCHC 33.5 RDW 13.7 Plt Count 216 MPV 7.8 Prelim Diff (Auto) Neut % (Auto) 87.6 H Lymph % (Auto) 8.1 L [place] % (Auto) 4.2 Eos % (Auto) 0.0 Baso % (Auto) 0.1 Neut # (Auto) 7.7 Lymph # (Auto) 0.7 L [place] # (Auto) 0.4 Eos # (Auto) 0.0 Baso # (Auto) 0.0 WBC Differential . Diff Scan Differential Comment Auto diff final PT INR APTT Sodium 139 Potassium 3.8 Chloride 106 Carbon Dioxide 19.8 L Anion Gap 13 BUN 15 Creatinine 1.31 H Estimated GFR 63 L Random Glucose 148 H Calcium 9.0 Magnesium 2.3 Total Bilirubin 0.6 AST 36 ALT 39 Alkaline Phosphatase 68 Total Creatine Kinase 647 H Cancelled CK-MB (CK-2) 7.2 H CK-MB (CK-2) % 1.1 Troponin I Less than 0.02 L Total Protein 7.5 Albumin 3.9 Salicylates Urine Opiates Screen Acetaminophen Less than 2.0 L Ur Barbiturates Screen Ur Amphetamines Screen U Benzodiazepines Scrn Urine Cocaine Screen U Cannabinoids Screen Serum Alcohol Less than 3 09/18/18 09/18/18 09/18/18 18:00 18:00 18:50 WBC RBC Hgb Hct MCV MCH MCHC RDW Plt Count MPV Prelim Diff (Auto) Neut % (Auto) Lymph % (Auto) [place] % (Auto) Eos % (Auto) Baso % (Auto) Neut # (Auto) Lymph # (Auto) [place] # (Auto) Eos # (Auto) Baso # (Auto) WBC Differential Diff Scan Differential Comment PT 11.1 INR 1.1 APTT 22.2 L Sodium Potassium Chloride Carbon Dioxide Anion Gap BUN Creatinine Estimated GFR Random Glucose Calcium Magnesium Total Bilirubin AST ALT Alkaline Phosphatase Total Creatine Kinase CK-MB (CK-2) CK-MB (CK-2) % Troponin I Total Protein Albumin Salicylates Less than 1.7 L Urine Opiates Screen Acetaminophen Cancelled Ur Barbiturates Screen Ur Amphetamines Screen U Benzodiazepines Scrn Urine Cocaine Screen U Cannabinoids Screen Serum Alcohol Cancelled 09/18/18 09/19/18 09/19/18 20:30 05:41 05:41 WBC 11.3 H RBC 4.04 L Hgb 12.0 L Hct 35.7 L MCV 88.3 MCH 29.8 MCHC 33.7 RDW 13.8 Plt Count 164 MPV 7.9 Prelim Diff (Auto) Slide review pending Neut % (Auto) 81.5 H Lymph % (Auto) 11.3 [place] % (Auto) 7.0 Eos % (Auto) 0.1 Baso % (Auto) 0.1 Neut # (Auto) 9.2 H Lymph # (Auto) 1.3 [place] # (Auto) 0.8 Eos # (Auto) 0.0 Baso # (Auto) 0.0 WBC Differential . Diff Scan Auto diff confirmed Differential Comment . PT INR APTT Sodium 141 Potassium 3.8 Chloride 108 H Carbon Dioxide 23.1 Anion Gap 10 BUN 11 Creatinine 0.80 Estimated GFR Greater than 89 Random Glucose 82 Calcium 8.5 Magnesium Total Bilirubin 0.9 AST 156 H ALT 51 Alkaline Phosphatase 59 Total Creatine Kinase CK-MB (CK-2) CK-MB (CK-2) % Troponin I Total Protein 6.9 D Albumin 3.6 Salicylates Urine Opiates Screen Neg Acetaminophen Ur Barbiturates Screen Neg Ur Amphetamines Screen Pos H U Benzodiazepines Scrn Pos H Urine Cocaine Screen Neg U Cannabinoids Screen Pos H Serum Alcohol - Imaging Impressions Head CT 09/18/18 18:52 CONCLUSION: 1. Left skull fracture in the middle cranial fossa temporal bone with adjacent pneumocephalus. No evidence of intraparenchymal hemorrhage at this point. Recommend close follow-up. . Face CT 09/19/18 00:00 CONCLUSION: 1. There is a small fracture through the inferior aspect of the temporal bone into the middle cranial fossa. This is nondisplaced. 2. There is nondisplaced fracture through the nasal bone. It is possible this is old. 3. The remainder the osseous structures of the face are intact. Head CT 09/19/18 07:23 CONCLUSION: 1. 2 mm area of hemorrhage in the lateral margin of the right temporal lobe this is similar in appearance to previous exam of 09/18/2018. 2. Nondisplaced fracture of the lateral margin of the left temporal bone with associated pneumocephaly. No hemorrhage identified within the left temporal lobe. . Assessment and Plan - Plan [place]: Found running naked around his neighborhood trying to get into people's vehicles and was tasered by police to restrain patient. Patient reports that he took 60 mg of Adderall. +Benzos, + cannabis, +amphetamines INJURIES: Temporal bone fracture w/ pneumocephalus Concussion PMHx: Methamphetamine use Temporal bone fracture w/ pneumocephalus, Concussion Neurosurgery consulted, awaiting plan Neuro checks Pain control Avoid second head injury Post concussive education Rhabdo Creatinine down to 0.80 today Encourage PO Polysubstance abuse
--- NOTE | 2018-09-19 12:46 | ECG ---
Date Performed: 09/18/2018 Time Performed: 18:55:23 PTAGE: 32 years EKG: Sinus rhythm POSSIBLE RIGHT VENTRICULAR CONDUCTION DELAY LEFT ANTERIOR FASCICULAR BLOCK VOLTAGE CRITERIA FOR LVH NONSPECIFIC ST ELEVATION ABNORMAL ECG NO PREVIOUS TRACING DOCTOR: Luh Drew Interpretating Date/Time 09/19/2018 12:42:01
--- NOTE | 2018-09-19 15:33 | P.DS ---
Date of admission: 09/18/18 21:12 Primary care physician: UNKNOWN Brief History from admission: S/P Fall DS: Diagnosis - Discharge Diagnosis (1) Closed fracture of temporal bone Status: Acute (2) Drug overdose Status: Acute (3) Rhabdomyolysis Status: Acute (4) Contusion of temporal lobe Status: Acute DS: Summary Hospital Course: [place]: Found running naked around his neighborhood trying to get into people's vehicles and was tasered by police to restrain patient. Patient reports that he took 60 mg of Adderall. +Benzos, + cannabis, +amphetamines INJURIES: Temporal bone fracture w/ pneumocephalus Temporal contusion PMHx: Methamphetamine use Temporal bone fracture w/ pneumocephalus, Temporal contusion Neurosurgery consulted, F/U outpatient Non-operative management D/W VICKEY Barron and cleared pt for DC Repeat CT Brain- stable Stable neuro checks Pain control- resume home dose of Methadone. RN called Methadone clinic and verified dose Avoid second head injury Post concussive education Polysubstance abuse, Adderall overdose Supportive care Poison control center notified Consider drug rehab Rhabdo Resolved Creatinine down to 0.80 today Encourage PO Plan of care discussed with patient and RN at bedside. Collaborating Trauma MD agrees with plan. Case management consulted to assist with discharge planning. Patient is clear from trauma surgery standpoint to safely DC into police custody. - Time Spent with Patient Total time spent providing and/or coordinating discharge services: Greater than 30 minutes - Quality: VTE Deep Vein Thrombosis/Pulmonary Embolism Present on Admission: No Exam Vital signs: Vital Signs 09/18/18 18:43 09/18/18 18:51 09/18/18 18:56 Temperature 98.7 F Pulse Rate 80 89 87 Respiratory Rate 18 20 Blood Pressure 122/80 135/69 Pulse Oximetry 98 96 09/18/18 21:00 09/19/18 00:38 09/19/18 01:45 Temperature 97.8 F Pulse Rate 86 86 81 Respiratory Rate 17 17 18 Blood Pressure 137/67 155/96 H 130/76 Pulse Oximetry 99 100 100 09/19/18 04:00 09/19/18 07:48 09/19/18 08:00 Temperature 98.9 F 97.4 F L Pulse Rate 73 69 Respiratory Rate 18 18 20 Blood Pressure 128/63 135/76 Pulse Oximetry 99 100 09/19/18 09:43 09/19/18 12:00 Temperature 98.9 F Pulse Rate 73 Respiratory Rate 20 Blood Pressure 133/73 Pulse Oximetry 100 100 Intake & Output 09/18/18 09/19/18 09/19/18 18:59 06:59 18:59 Intake Total 1999 1720 / 1720 Output Total 3 / Balance 1999 1717 / 1717 Weight 81.647 kg 80.1 kg Intake: IV 1999 1000 / 1000 NS Inj 1,000 ML @ 100 mls/hr IV 1000 / 1000 .CONT .Q10H [facility] Rx#:[id number] NS Inj 1,000 ML @ 1000 mls/hr 1999 IV.SIG BOLUS [facility] Rx#:[id number] Oral 720 / 720 Output: Urine Other: # Voids 0 Narrative: GENERAL: 32 year old well developed male lying in bed with special police officer at bedside. SKIN: Warm and dry. 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 CARDIOVASCULAR: Regular rate and rhythm. RESPIRATORY: Lungs clear to auscultation bilaterally. GASTROINTESTINAL: Abdomen soft, non-tender, nondistended. + BS. MUSCULOSKELETAL: Extremities without cyanosis or edema. MAEW, + perfused NEUROLOGICAL: Alert and oriented. Speech clear. Results Procedures completed during hospitalization: . Labs on day of discharge: Labs from last 24 hours 09/19/18 09/19/18 09/18/18 05:41 05:41 20:30 WBC 11.3 H RBC 4.04 L Hgb 12.0 L Hct 35.7 L MCV 88.3 MCH 29.8 MCHC 33.7 RDW 13.8 Plt Count 164 MPV 7.9 Prelim Diff (Auto) Slide review pending Neut % (Auto) 81.5 H Lymph % (Auto) 11.3 [place] % (Auto) 7.0 Eos % (Auto) 0.1 Baso % (Auto) 0.1 Neut # (Auto) 9.2 H Lymph # (Auto) 1.3 [place] # (Auto) 0.8 Eos # (Auto) 0.0 Baso # (Auto) 0.0 WBC Differential . Diff Scan Auto diff confirmed Differential Comment . PT INR APTT Sodium 141 Potassium 3.8 Chloride 108 H Carbon Dioxide 23.1 Anion Gap 10 BUN 11 Creatinine 0.80 Estimated GFR Greater than 89 Random Glucose 82 Calcium 8.5 Magnesium Total Bilirubin 0.9 AST 156 H ALT 51 Alkaline Phosphatase 59 Total Creatine Kinase CK-MB (CK-2) CK-MB (CK-2) % Troponin I Total Protein 6.9 D Albumin 3.6 Salicylates Urine Opiates Screen Neg Acetaminophen Ur Barbiturates Screen Neg Ur Amphetamines Screen Pos H U Benzodiazepines Scrn Pos H Urine Cocaine Screen Neg U Cannabinoids Screen Pos H Serum Alcohol 09/18/18 09/18/18 09/18/18 18:50 18:00 18:00 WBC RBC Hgb Hct MCV MCH MCHC RDW Plt Count MPV Prelim Diff (Auto) Neut % (Auto) Lymph % (Auto) [place] % (Auto) Eos % (Auto) Baso % (Auto) Neut # (Auto) Lymph # (Auto) [place] # (Auto) Eos # (Auto) Baso # (Auto) WBC Differential Diff Scan Differential Comment PT 11.1 INR 1.1 APTT 22.2 L Sodium Potassium Chloride Carbon Dioxide Anion Gap BUN Creatinine Estimated GFR Random Glucose Calcium Magnesium Total Bilirubin AST ALT Alkaline Phosphatase Total Creatine Kinase CK-MB (CK-2) CK-MB (CK-2) % Troponin I Total Protein Albumin Salicylates Less than 1.7 L Urine Opiates Screen Acetaminophen Cancelled Ur Barbiturates Screen Ur Amphetamines Screen U Benzodiazepines Scrn Urine Cocaine Screen U Cannabinoids Screen Serum Alcohol Cancelled 09/18/18 09/18/18 09/18/18 18:00 18:00 18:00 WBC 8.8 RBC 4.39 L Hgb 12.8 L Hct 38.2 L MCV 87.0 MCH 29.1 MCHC 33.5 RDW 13.7 Plt Count 216 MPV 7.8 Prelim Diff (Auto) Neut % (Auto) 87.6 H Lymph % (Auto) 8.1 L [place] % (Auto) 4.2 Eos % (Auto) 0.0 Baso % (Auto) 0.1 Neut # (Auto) 7.7 Lymph # (Auto) 0.7 L [place] # (Auto) 0.4 Eos # (Auto) 0.0 Baso # (Auto) 0.0 WBC Differential . Diff Scan Differential Comment Auto diff final PT INR APTT Sodium 139 Potassium 3.8 Chloride 106 Carbon Dioxide 19.8 L Anion Gap 13 BUN 15 Creatinine 1.31 H Estimated GFR 63 L Random Glucose 148 H Calcium 9.0 Magnesium 2.3 Total Bilirubin 0.6 AST 36 ALT 39 Alkaline Phosphatase 68 Total Creatine Kinase Cancelled 647 H CK-MB (CK-2) 7.2 H CK-MB (CK-2) % 1.1 Troponin I Less than 0.02 L Total Protein 7.5 Albumin 3.9 Salicylates Urine Opiates Screen Acetaminophen Less than 2.0 L Ur Barbiturates Screen Ur Amphetamines Screen U Benzodiazepines Scrn Urine Cocaine Screen U Cannabinoids Screen Serum Alcohol Less than 3 - Impressions ITS Impressions Face CT 09/19/18 00:00 CONCLUSION: 1. There is a small fracture through the inferior aspect of the temporal bone into the middle cranial fossa. This is nondisplaced. 2. There is nondisplaced fracture through the nasal bone. It is possible this is old. 3. The remainder the osseous structures of the face are intact. Head CT 09/19/18 07:23 CONCLUSION: 1. 2 mm area of hemorrhage in the lateral margin of the right temporal lobe this is similar in appearance to previous exam of 09/18/2018. 2. Nondisplaced fracture of the lateral margin of the left temporal bone with associated pneumocephaly. No hemorrhage identified within the left temporal lobe. . Discharge Plan - Discharge Disposition Patient Disposition: 01 Discharge Home - Discharge Condition Condition: Stable - Physicians Team Primary Care Provider: UNKNOWN, Attending Provider: Darrian Sparrow Other Providers: Davide Mahajan MD ; Romelia Saez MD ; Riana Sequeira ARNP ; Jose Sin MD ; Kallie Brandon MD ; Nara Nguyễn ARNP ; Gabriel Peterson MD ; Tonio Sheaerr MD ; Darrian Sparrow MD ; [facility] [facility]
[2018-09-19] MEDS ORDERED: Methadone 10 MG Tablet PO SCH (16:00)
--- NOTE | 2018-09-19 16:04 | P.PNNS ---
Subjective Interval history: This is a 32-year-old male who was found running around his neighborhood naked trying to get into people's vehicles. He reports that he took 60 mg of Adderall today. When attempting to arrest him the police states that they had to use a teaser to restrain patient. No seizure activity. No tongue bitting. No incontinence of stool or urine. Patient states that he has pain all over, constant, aching pain, 5 out of 10. He denies intentionally trying to overdose. He states that he was unable to sleep for several days. He currently denies any chest pain, shortness of breath , headache, dizziness, he denies any illicit drug use. He does admit to a history of methamphetamine use. He denies focal weakness. Denies sensory loss, denies incontinence of stool or urine, CT brain showed a temporal fracture and a small pneumocephalus. Neurosurgical consultation was requested 09/19. Alert and awake. No focal deficits. GCS 15 I have reviewed the clinical and radiological findings Head CT 09/18/18 18:52 CONCLUSION: 1. Left skull fracture in the middle cranial fossa temporal bone with adjacent pneumocephalus. No evidence of intraparenchymal hemorrhage at this point. Recommend close follow-up. . Neuro: neuro checks in a serial fashion. Pulmonary: aggressive pulmonary toilette, nasotracheal suction, and breathing treatments with nebulizers. Daily PT and OT Renal: Continue to monitor closely urine output, BUN and creatinine Endocrine: Continue to Monitor serial Acu checks and SSI as needed in detail ID continue to monitor for signs of infection Continue Protonix for stress ulcer prophylaxis Continue Gutierrez hose and SCD's for DVT prophylaxis Physical Exam Vital signs: Vital Signs 09/18/18 18:43 09/18/18 18:51 09/18/18 18:56 Temperature 98.7 F Pulse Rate 80 89 87 Respiratory Rate 18 20 Blood Pressure 122/80 135/69 Pulse Oximetry 98 96 09/18/18 21:00 09/19/18 00:38 09/19/18 01:45 Temperature 97.8 F Pulse Rate 86 86 81 Respiratory Rate 17 17 18 Blood Pressure 137/67 155/96 H 130/76 Pulse Oximetry 99 100 100 09/19/18 04:00 09/19/18 07:48 09/19/18 08:00 Temperature 98.9 F 97.4 F L Pulse Rate 73 69 Respiratory Rate 18 18 20 Blood Pressure 128/63 135/76 Pulse Oximetry 99 100 09/19/18 09:43 09/19/18 12:00 Temperature 98.9 F Pulse Rate 73 Respiratory Rate 20 Blood Pressure 133/73 Pulse Oximetry 100 100 Intake & Output 09/18/18 09/19/18 09/19/18 18:59 06:59 18:59 Intake Total 1999 1720 / 1720 Output Total Balance 1999 1717 / 1717 Weight 81.647 kg 80.1 kg Intake: IV 1999 1000 / 1000 NS Inj 1,000 ML @ 100 mls/hr IV 1000 / 1000 .CONT .Q10H [facility] Rx#:[id number] NS Inj 1,000 ML @ 1000 mls/hr 1999 IV.SIG BOLUS CONSUELO Rx#:[id number] Oral 720 / 720 Output: Urine Other: # Voids 0 Narrative: Mr Dudley is alert, awake. Comfortable, in no acute distress. Speech is fluent. No evidence of CSF leak Cranial nerve examination: pupils to be equal, round and reactive to light. Extra-ocular movements are intact. Facial motor and sensory function are normal and symmetrical. Gross hearing appears intact. Sternocleidomastoid and trapezius muscles are symmetrical. Other cranial nerves are intact. Neck is soft and supple with a good range of motion without pain. Muscle strength is normal in all muscle groups of both upper and lower extremities. Sensory examination is intact to light touch and pin prick in both the upper and lower extremities. Deep tendon reflexes are symmetrical in both upper and lower extremities. There is a bilateral plantar flexion response. Cerebellar examination is unremarkable, without deficits. Lungs are clear Heart regular rhythm is regular rate Skin warm and dry Assessment and Plan - Plan I again reviewed his CT Head CT 09/18/18 18:52 CONCLUSION: 1. Left skull fracture in the middle cranial fossa temporal bone with adjacent pneumocephalus. No evidence of intraparenchymal hemorrhage at this point. Recommend close follow-up. Neuro: neuro checks in a serial fashion. Stable for discharge Pulmonary: Continue pulmonary toilette, nasotracheal suction, and breathing treatments with nebulizers. Renal: Continue to monitor closely urine output, BUN and creatinine Endocrine: Continue to Monitor serial Acu checks and SSI as needed in detail ID continue to monitor for signs of infection Continue Protonix for stress ulcer prophylaxis Continue Gutierrez hose and SCD's for DVT prophylaxis Stable for discharge
[2018-09-19 16:34] VITALS: BP 120/75; PULSE 70; TEMP 98.8; O2SAT 98
== END 2018-09-19 17:19 ==
LOC: NEPE 18:38 → NEDA 21:12 → N07 09-19 01:45
PROVIDERS: ADMIT Surgery; ATTEND Surgery